=== PATIENT | female | born 1985 | race Caucasian/White ===

== ENCOUNTER 2024-07-01 23:29 | Emergency (ER) | payer OTHER ==
[~2024-07-01] VITALS: Ht 162.6 cm; Wt 92.9 kg
[2024-07-02 03:35] LABS: BASO % 0.5 % (0.0-1.0); EOS # 0.1 10^3/uL (0.0-0.5); EOS % 0.8 % (0.0-3.0); HEMATOCRIT 44.1 % (36.0-47.0); HEMOGLOBIN 15.4 g/dl (12.0-15.5); LYMPH # 3.3 10^3/uL (1.5-5.0); LYMPH % 41.8 % (24.0-44.0); MEAN CORPUSCULAR HEMOGLOBIN 31.4 pg (27.0-33.0); MEAN CORPUSCULAR HGB CONC 34.9 g/dl (32.0-36.5); MONO # 0.5 10^3/uL (0.0-0.8); NEUTROPHILS % 50.6 % (36.0-66.0); PLATELET COUNT, AUTOMATED 291 10^3/uL (150-450)
[2024-07-02 03:58] LABS: LIPASE 46 U/L (12-53)
[2024-07-02 04:00] LABS: ALBUMIN 4.4 G/DL (3.2-5.2); ALKALINE PHOSPHATASE 79 U/L (35-104); ALT/SGPT 63 U/L (7.0-40); AST/SGOT 39 U/L (<34); BILIRUBIN,DIRECT 0.3 MG/DL (<0.4); BILIRUBIN,TOTAL 1.1 MG/DL (0.3-1.2); BLOOD UREA NITROGEN 17 MG/DL (9-23); CALCIUM LEVEL 10.1 MG/DL (8.5-10.1); CARBON DIOXIDE LEVEL 22 MMOL/L (20-31); CHLORIDE LEVEL 108 MMOL/L (98-107); CREATININE FOR GFR 0.79 MG/DL (0.55-1.30); GLOMERULAR FILTRATION RATE > 60.0 (>58); GLUCOSE, FASTING 91 MG/DL (60-100); POTASSIUM SERUM 4.2 MMOL/L (3.5-5.1); SODIUM LEVEL 141 MMOL/L (136-145); TOTAL PROTEIN 7.4 G/DL (5.7-8.2)
[2024-07-02] MEDS: SUCRALFATE 1 GM TAB PO ONE (04:07)
[2024-07-02] MEDS: FAMOTIDINE IV BAG 20 MG in IV 1 EA IV ONE (04:07)
[2024-07-02] MEDS: METOCLOPRAMIDE INJ 10MG/2ML VIAL IV ONE (04:07)
[2024-07-02] MEDS: PANTOPRAZOLE 40MG VIAL IV ONE (04:07)
[2024-07-02 04:10] LABS: INR 0.94; PARTIAL THROMBOPLASTIN TIME 26.1 SECONDS (24.8-34.2); PROTHROMBIN TIME 12.9 SECONDS (12.5-14.5)
[2024-07-02] MEDS ORDERED: ISOVUE-370 76% 100ML VIAL As Ordered ONE (04:33)
[2024-07-02 05:35] LABS: HEMATOCRIT 37.7 % (36.0-47.0); MEAN CORPUSCULAR HEMOGLOBIN 31.5 pg (27.0-33.0); PLATELET COUNT, AUTOMATED 246 10^3/uL (150-450); RED BLOOD COUNT 4.19 10^6/uL (4.00-5.40)
[2024-07-02 05:47] LABS: HEMOGLOBIN 13.2 g/dl (12.0-15.5)
[2024-07-02] MEDS ORDERED: CARA1TAB6 PO (06:18)
[2024-07-02] MEDS ORDERED: PEPC1TAB5 PO (06:18)
[2024-07-02] MEDS ORDERED: PROT1TAB2 PO (06:18)
[2024-07-02 07:24] VITALS: BP 125/61; TEMP 97.6; O2SAT 97
== END 2024-07-02 07:34 | disposition home or self-care (01) ==
LOC: M ED 23:29
DX: K92.2 Gastrointestinal hemorrhage, unspecified (principal); K21.9 Gastro-esophageal reflux disease without esophagitis; F10.10 Alcohol abuse, uncomplicated; Z79.899 Other long term (current) drug therapy
CPT/HCPCS: 74177; 80048; 80076; 83690; 85025; 85027; 85610; 85730; 86850; 86900; 86901; 93041; 96365; 96375; 99284; J2470; J2765; Q9967; S0028